=== PATIENT | female | born 1955 | race Caucasian/White ===

== ENCOUNTER 2016-05-05 15:56 | Observation (INO) | payer BC ==
[2016-05-05] MEDS ORDERED: 0.9 % SODIUM CHLORIDE 1000ML 1,000 ML IV PRN (16:33)
[2016-05-05] MEDS ORDERED: NITROGLYCERIN 0.4MG SL TABLET #25 BTL SL PRN ×2 (16:33→19:59)
[2016-05-05] MEDS ORDERED: ASPIRIN 81 MG CHEWABLE TABLET PO ONE (16:33)
[2016-05-05 16:54] LABS: EOS % 6.4 % (0-6); GRAN % 51.9 % (47-80); HEMATOCRIT 42.9 % (35.0-47.0); HEMOGLOBIN 13.8 gm/dl (11.6-16.0); LYMPH % 33.7 % (16-45); MEAN CELL VOLUME 97.7 fl (81-97); MEAN CORPUSCULAR HEMOGLOBIN 31.4 pg (27-33); MEAN CORPUSCULAR HGB CONC 32.2 g/dl (32-36); MEAN PLATELET VOLUME 10.2 fl (7.4-10.4); PLATELET COUNT 302 K/uL (130-400); RED BLOOD COUNT 4.39 M/uL (3.80-5.40); RED CELL DISTRIBUTION WIDTH 13.8 % (11.5-14.5); WHITE BLOOD COUNT W/O DIFF 6.7 K/uL (4.2-12.2)
[2016-05-05 17:05] LABS: ANION GAP 13.2 (7-16); BLOOD UREA NITROGEN 15 mg/dL (7-17); CARBON DIOXIDE 27.8 mmol/L (22-30); CREATINE PHOSPHOKINASE 29 U/L (30-135); CREATININE 0.7 mg/dL (0.52-1.04); EST GLOMERULAR FILTRATION RATE > 60 ml/min; GLUCOSE,RANDOM 92 mg/dL (70-110)
[2016-05-05 17:13] LABS: D-DIMER 0.93 mg/L FEU (0-0.59); PARTIAL THROMBOPLASTIN TIME 26.2 SECONDS (24.5-39.1)
[2016-05-05 17:30] LABS: CKMB < 0.2 ug/L (0-6); TROPONIN I < 0.012 ng/mL (0.00-0.034)
--- NOTE | 2016-05-05 19:33 | Emergency Department Record ---
History of Present Illness - General Chief Complaint: Chest Pain Stated Complaint: NECK PAIN,LEFT ARM & CHEST PAIN Time Seen by Provider: 05/05/16 16:16 Source: Patient Mode of Arrival: Wheelchair Limitations: No limitations - History of Present Illness Initial Comments: pt developed chest pain/neck pain and l shoulder pain unlike anything she has ever had before. MD Complaint: Chest pain Onset/Timin -: Days(s) Onset: During rest Pain Location: Other Pain Radiation: Other Severity: Moderate Severity scale (1-10): 7 Quality: Aching Consistency: Constant Improves With: Medication-other Worsens With: Nothing Anginal Symptoms: Nausea Treatments Prior to Arrival: Aspirin - Related Data Home Medications Medication Instructions Recorded Confirmed Last Taken Hydrochlorothiazide 1 tab PO DAILY 09/24/13 07/15/14 05/05/16 [Hydrochlorothiazide] Aspirin/Acetaminophen/Caffeine 1 each PO BID 07/15/14 07/15/14 05/05/16 [Excedrin Migraine Caplet] Levothyroxine Sodium 50 mcg PO DAILY 05/05/16 05/05/16 05/05/16 Allergies Allergy/AdvReac Type Severity Reaction Status Date / Time Cephalosporins Allergy ALTERED Verified 05/05/16 16:14 MENTAL STATUS Travel Screening - Travel/Exposure Within Last 30 Days Have you traveled within the last 30 days?: No - Travel/Exposure Within Last Year Have you traveled outside the [place] in the last year?: No - Additonal Travel Details Have you been exposed to anyone with a communicable illness?: No - Travel Symptoms Symptom Screening: None Review of Systems Reviewed: No additional complaints except as noted below Constitutional: Reports: As per HPI. Denies: Chills, Fever, Malaise, Night sweats, Weakness, Weight change Eyes: Reports: As per HPI. Denies: Eye discharge, Eye pain, Photophobia, Vision change ENT: Reports: As per HPI. Denies: Congestion, Dental pain, Ear pain, Epistaxis , Hearing loss, Throat pain Respiratory: Reports: As per HPI. Denies: Cough, Dyspnea, Hemoptysis, Stridor, Wheezes Cardiovascular: Reports: As per HPI. Denies: Arrhythmia, Chest pain, Dyspnea on exertion, Edema, Murmurs, Orthopnea, Palpitations, Paroxysmal nocturnal dyspnea, Rheumatic Fever, Syncope Endocrine: Reports: As per HPI. Denies: Fatigue, Heat or cold intolerance, Polydipsia, Polyuria Gastrointestinal: Reports: As per HPI. Denies: Abdominal pain, Constipation, Diarrhea, Hematemesis, Hematochezia, Melena, Nausea, Vomiting Genitourinary: Reports: As per HPI. Denies: Abnormal menses, Discharge, Dyspareunia, Dysuria, Frequency, Hematuria, Incontinence, Retention, Urgency Musculoskeletal: Reports: As per HPI. Denies: Arthralgia, Back pain, Gout, Joint swelling, Myalgia, Neck pain Skin: Reports: As per HPI. Denies: Bruising, Change in color, Change in hair/ nails, Lesions, Pruritus, Rash Neurological: Reports: As per HPI. Denies: Abnormal gait, Confusion, Headache, Numbness, Paresthesias, Seizure, Tingling, Tremors, Vertigo, Weakness Psychiatric: Reports: As per HPI. Denies: Anxiety, Auditory hallucinations, Depression, Homicidal thoughts, Suicidal thoughts, Visual hallucinations Hematological/Lymphatic: Reports: As per HPI. Denies: Anemia, Blood Clots, Easy bleeding, Easy bruising, Swollen glands Past Medical History - SOCIAL HISTORY Smoking Status: Never smoker Alcohol Use: None Drug Use: None - RESPIRATORY Hx Respiratory Disorders: No - CARDIOVASCULAR Hx Cardio Disorders: No - NEURO Hx Neuro Disorders: Yes Hx CVA: Yes (right side July 2012) Hx Headaches: Yes - GI Hx GI Disorders: No Hx Nausea/Vomiting: Yes Comment:: frequent idigestion, constipation - Hx Genitourinary Disorders: No - ENDOCRINE Hx Endocrine Disorders: Yes Hx Thyroid Disease: Yes (partial thyroidectomy) - MUSCULOSKELETAL Hx Musculoskeletal Disorders: No - PSYCH Hx Psych Problems: Yes Hx Depression: Yes - HEMATOLOGY/ONCOLOGY Hx Hematology/Oncology Disorders: Yes Hx Cancer: Yes Hx Chemotherapy: No Hx Radiation Therapy: Yes Family Medical History Any Significant Family History?: No Hx Heart Disease: Mother Physical Exam - General General Appearance: Alert, Oriented x3, Cooperative, Mild distress - Head Head exam: Normal inspection - Eye Eye exam: Normal appearance, PERRL, EOMI Pupils: Normal accommodation - ENT ENT exam: Normal exam, Mucous membranes moist, Normal external ear exam, Normal orophraynx Ear exam: Normal external inspection. negative: External canal tenderness Nasal Exam: Normal inspection. negative: Discharge, Sinus tenderness Mouth exam: Normal external inspection, Tongue normal Teeth exam: Normal inspection. negative: Dental caries Throat exam: Normal inspection. negative: Tonsillar erythema, Tonsillar exudate - Neck Neck exam: Normal inspection, Full ROM. negative: Tenderness - Respiratory Respiratory exam: Normal lung sounds bilaterally. negative: Respiratory distress - Cardiovascular Cardiovascular Exam: Regular rate, Normal rhythm, Normal heart sounds - GI/Abdominal GI/Abdominal exam: Soft, Normal bowel sounds. negative: Tenderness - Rectal Rectal exam: Deferred - exam: Deferred - Extremities Extremities exam: Normal inspection, Full ROM, Normal capillary refill. negative: Tenderness - Back Back exam: Reports: Normal inspection, Full ROM. Denies: Muscle spasm, Rash noted, Tenderness - Neurological Neurological exam: Alert, Normal gait, Oriented X3 - Psychiatric Psychiatric exam: Normal affect, Normal mood - Skin Skin exam: Dry, Intact, Normal color, Warm Course Vital Signs 05/05/16 16:18 Temperature 98 F Pulse Rate 74 Respiratory 18 Rate Blood Pressure 118/56 Pulse Ox 98 - Reevaluation(s) Reevaluation #1: 05/05/16 19:32 pts symptoms were relieved by ntg. ct neg for pe Medical Decision Making - Lab Data Result diagrams: 05/05/16 16:48 05/05/16 16:48 Lab Results 05/05/16 05/05/16 05/05/16 Range/Units 16:48 16:48 16:48 WBC 6.7 (4.2-12.2) K/uL RBC 4.39 (3.80-5.40) M/uL Hgb 13.8 (11.6-16.0) gm/dl Hct 42.9 (35.0-47.0) % MCV 97.7 H (81-97) fl MCH 31.4 (27-33) pg MCHC 32.2 (32-36) g/dl RDW 13.8 (11.5-14.5) % Plt Count 302 (130-400) K/uL MPV 10.2 (7.4-10.4) fl Gran % 51.9 (47-80) % Lymphocytes % 33.7 (16-45) % Monocytes % 7.0 (0-9) % Eosinophils % 6.4 H (0-6) % Basophils % 1.0 (0-6) % PTT 26.20 (24.5-39.1) SECONDS D-Dimer 0.93 H (0-0.59) mg/L FEU Sodium 145 (136-145) mmol/L Potassium 3.7 (3.5-5.1) mmol/L Chloride 104 (98-107) mmol/L Carbon Dioxide 27.8 (22-30) mmol/L Anion Gap 13.2 (7-16) BUN 15 (7-17) mg/dL Creatinine 0.7 (0.52-1.04) mg/dL Estimated GFR > 60 ml/min Random Glucose 92 (70-110) mg/dL Calcium 9.7 (8.5-10.1) mg/dL Creatine Kinase 29 L (30-135) U/L CK-MB (CK-2) < 0.2 (0-6) ug/L Troponin I < 0.012 (0.00-0.034) ng/mL NT-Pro-B Natriuret Pep 70.00 (<125) pg/mL Disposition Disposition: Admit Clinical Impression: Chest pain Qualifiers: Chest pain type: unspecified Qualified Code(s): R07.9 - Chest pain, unspecified Disposition: Still a Patient at [facility] Decision to Admit: Admit from ER Decision to Admit Date: 05/05/16 Decision to Admit Time: 19:34 Forms: Patient Portal Access
[2016-05-05] MEDS ORDERED: ACETAMINOPHEN 500 MG TABLET PO PRN (19:59)
[2016-05-05] MEDS ORDERED: TEMAZEPAM 15 MG CAPSULE PO PRN (19:59)
[2016-05-06 00:43] LABS: CKMB < 0.2 ug/L (0-6)
[2016-05-06 01:12] LABS: TROPONIN I < 0.012 ng/mL (0.00-0.034)
[2016-05-06] MEDS ORDERED: LEVOTHYROXINE SODIUM 50 MCG TABLET PO SCH ×2 (07:00→10:00)
[2016-05-06 08:34] LABS: CHOLESTEROL 165 mg/dL (0-200); HDL CHOLESTEROL 44 mg/dL (40-60); TRIGLYCERIDES 86 mg/dL (30-200); VLDL CHOLESTEROL 17 mg/dL (10.00-40.00)
[2016-05-06 08:46] LABS: LDL CHOLESTEROL/MEASURED 89.9 mg/dL (0-100)
[2016-05-06 08:47] LABS: CKMB < 0.2 ug/L (0-6); TROPONIN I < 0.012 ng/mL (0.00-0.034)
[2016-05-06] MEDS ORDERED: HYDROCHLOROTHIAZIDE 25 MG TABLET PO SCH (10:00)
[2016-05-06] MEDS ORDERED: ASPIRIN 325 MG TAB ENTERIC-COATED PO SCH (10:00)
--- NOTE | 2016-05-06 10:45 | History & Physical ---
History of Present Illness - Date of Service Date of Service for History & Physical: 05/06/16 - History of Present Illness Admitting Diagnosis: chest pain History of Present Illness: 60 yo female admitted with CC of CP. PMHx of costochondritis, stress, L breast cancer (dx in 2010 s/p RXT/chemo, lumpectomy and breast augmentation), hypothyroidism, migraines and melanoma. CP started 3-4 days ago. Pain began in neck and radiated to left shoulder and down left arm. Described as heavy/achy. Rated 8/10 in severity at it's worst. aggravated by stress and indigestion. Alleviated by ntg in the ER. Associated symptoms included stress, constipation, indigestion, fatigue and lightheadedness. upon presentation, VS stable. CBC/CMP normal, d-dimer 0.93, CE negative x 1, BNP 70, CTA: negative. EKG: sinus rhythm, borderline prolonged NM int. LDL: 89.9, TG 86, chol 165, HDL 44. Patient's chest/neck/shoulder pain improved with 0.4 mg of NTG. Patient was placed on telemetry. Two more CE's ordered. Patient admitted for further medical management. This morning, patient is lying comfortably in bed. She denies any chest/ shoulder/neck or arm pain. She's not received any NTG or pain medication since arriving to the floor. she's had two additional CE's ordered which are negative. She tolerated breakfast. No bowel movements. ambulating to the restroom. No personal hx of cardiac disease. Reports mother has h/o triple bypass. she admits to a significant amount of stress at home. She also c/o on and off constipation, which lead to abdominal bloating. No N/V, diarrhea, abd pain, change in urination, dysuria, fever, chills, headache, change in vision. Last colonoscopy was normal per patient and she's due in 2020 for screening. Patient has had previous ED visits for chest pain and diagnosed with costchondritis. she has no mft. no smoking history. no hospitalization within the past year. no recent travel or change in medications. No SOB, [place], cough, acid reflux. PCP: Dr. Sher Travel Screening - Travel/Exposure Within Last 30 Days Have you traveled within the last 30 days?: No - Travel/Exposure Within Last Year Have you traveled outside the [place] in the last year?: No - Additonal Travel Details Have you been exposed to anyone with a communicable illness?: No - Travel Symptoms Symptom Screening: None Review of Systems Constitutional: Reports: As per HPI. Denies: Chills, Fever, Malaise, Night sweats, Weakness, Weight change Eyes: Reports: As per HPI. Denies: Eye discharge, Eye pain, Photophobia, Vision change ENT: Reports: As per HPI. Denies: Congestion, Dental pain, Ear pain, Epistaxis , Hearing loss, Throat pain Respiratory: Reports: As per HPI. Denies: Cough, Dyspnea, Hemoptysis, Stridor, Wheezes Cardiovascular: Reports: As per HPI. Denies: Arrhythmia, Chest pain, Dyspnea on exertion, Edema, Murmurs, Orthopnea, Palpitations, Paroxysmal nocturnal dyspnea, Rheumatic Fever, Syncope Endocrine: Reports: As per HPI. Denies: Fatigue, Heat or cold intolerance, Polydipsia, Polyuria Gastrointestinal: Reports: As per HPI. Denies: Abdominal pain, Constipation, Diarrhea, Hematemesis, Hematochezia, Melena, Nausea, Vomiting Genitourinary: Reports: As per HPI. Denies: Abnormal menses, Discharge, Dyspareunia, Dysuria, Frequency, Hematuria, Incontinence, Retention, Urgency Musculoskeletal: Reports: As per HPI. Denies: Arthralgia, Back pain, Gout, Joint swelling, Myalgia, Neck pain Skin: Reports: As per HPI. Denies: Bruising, Change in color, Change in hair/ nails, Lesions, Pruritus, Rash Neurological: Reports: As per HPI. Denies: Abnormal gait, Confusion, Headache, Numbness, Paresthesias, Seizure, Tingling, Tremors, Vertigo, Weakness Psychiatric: Reports: As per HPI. Denies: Anxiety, Auditory hallucinations, Depression, Homicidal thoughts, Suicidal thoughts, Visual hallucinations Hematological/Lymphatic: Reports: As per HPI. Denies: Anemia, Blood Clots, Easy bleeding, Easy bruising, Swollen glands Past Medical History - SOCIAL HISTORY Smoking Status: Never smoker Alcohol Use: None Drug Use: None - RESPIRATORY Hx Respiratory Disorders: No - CARDIOVASCULAR Hx Cardio Disorders: No - NEURO Hx Neuro Disorders: Yes Hx CVA: Yes (right side July 2012) Hx Headaches: Yes - GI Hx GI Disorders: Yes Hx Nausea/Vomiting: Yes Comment:: frequent idigestion, constipation - Hx Genitourinary Disorders: No - ENDOCRINE Hx Endocrine Disorders: Yes Hx Thyroid Disease: Yes (partial thyroidectomy) - MUSCULOSKELETAL Hx Musculoskeletal Disorders: No - PSYCH Hx Psych Problems: Yes Hx Depression: Yes - HEMATOLOGY/ONCOLOGY Hx Hematology/Oncology Disorders: Yes Hx Cancer: Yes Hx Chemotherapy: No Hx Radiation Therapy: Yes Family Medical History Any Significant Family History?: Yes Family Hx Comment (NOT TO BE USED IN PLACE OF ITEMS BELOW): Daughter has SLE Hx Cancer: Children Hx Diabetes: Grandparents Hx Heart Disease: Mother H&P Meds/Allergies - Allergies Allergies: Allergies Allergy/AdvReac Type Severity Reaction Status Date / Time banana Allergy SWELLING Verified 05/05/16 20:31 OF THE TONGUE broccoli Allergy SWELLING Verified 05/05/16 20:31 (GENERAL) Cephalosporins Allergy ALTERED Verified 05/05/16 16:14 MENTAL STATUS Latex, Natural Rubber Allergy SWELLING Verified 05/05/16 20:31 (GENERAL) - Home Medications Home Medications Medication Instructions Recorded Confirmed Last Taken Hydrochlorothiazide 1 tab PO DAILY 09/24/13 05/05/16 05/03/16 [Hydrochlorothiazide] Aspirin/Acetaminophen/Caffeine 1 each PO BID 07/15/14 05/05/16 05/05/16 [Excedrin Migraine Caplet] Levothyroxine Sodium 50 mcg PO DAILY 05/05/16 05/05/16 05/05/16 - Active Medications Active Medications: Current Medications Acetaminophen (Tylenol 500mg Tab) 1,000 mg PO Q6H PRN PRN Reason: PAIN/TEMP Aspirin (Ecotrin (Ec)) 325 mg PO DAILY [facility] Last Admin: 05/06/16 10:26 Dose: Not Given Hydrochlorothiazide (Hctz 25mg) 25 mg PO DAILY [facility] Last Admin: 05/06/16 10:26 Dose: Not Given Levothyroxine Sodium (Synthroid) 50 mcg PO DAILYTHY [facility] Last Admin: 05/06/16 06:30 Dose: 50 mcg Nitroglycerin (Nitrostat 0.4mg) 0.4 mg SL Q5MIN PRN PRN Reason: CHEST PAIN Stop: 05/07/16 20:00 Temazepam (Restoril) 15 mg PO QHS PRN PRN Reason: INSOMNIA Last Admin: 05/05/16 23:35 Dose: 15 mg Physical Exam - Vital Signs Vital Signs: Vital Signs - Last 24 Hrs Temp Pulse Pulse Pulse Resp BP Pulse Ox 05/06/16 08:00 60 63 15 05/06/16 07:56 98.3 F 63 15 96/57 94 L 05/06/16 04:55 97.6 F 66 16 100/56 95 05/05/16 22:23 63 95 05/05/16 21:20 98.9 F 61 21 105/57 98 05/05/16 21:00 62 18 05/05/16 19:59 98.9 F 72 18 108/68 98 - General General Appearance: Alert, Oriented x3, Cooperative, No acute distress Limitations: No limitations - Head Head exam: Normal inspection - Eye Eye exam: Normal appearance, PERRL, EOMI Pupils: Normal accommodation - ENT ENT exam: Normal exam, Mucous membranes moist, Normal external ear exam, Normal orophraynx Ear exam: Normal external inspection. negative: External canal tenderness Nasal Exam: Normal inspection. negative: Discharge, Sinus tenderness Mouth exam: Normal external inspection, Tongue normal Teeth exam: Normal inspection. negative: Dental caries Throat exam: Normal inspection. negative: Tonsillar erythema, Tonsillar exudate - Neck Neck exam: Normal inspection, Full ROM. negative: Tenderness - Respiratory Respiratory exam: Normal lung sounds bilaterally. negative: Respiratory distress - Cardiovascular Cardiovascular Exam: Regular rate, Normal rhythm, Normal heart sounds - GI/Abdominal GI/Abdominal exam: Soft, Normal bowel sounds. negative: Tenderness - Rectal Rectal exam: Deferred - exam: Deferred - Extremities Extremities exam: Normal inspection, Full ROM, Normal capillary refill. negative: Tenderness - Back Back exam: Reports: Normal inspection, Full ROM. Denies: Muscle spasm, Rash noted, Tenderness - Neurological Neurological exam: Alert, Normal gait, Oriented X3 - Psychiatric Psychiatric exam: Normal affect, Normal mood - Skin Skin exam: Dry, Intact, Normal color, Warm Results - Labs Result Diagrams: 05/05/16 16:48 05/05/16 16:48 Labs Last 24 Hours: Laboratory Results - last 24 hr 05/06/16 08:14 CK-MB (CK-2) < 0.2 Troponin I < 0.012 Triglycerides 86 Cholesterol 165 LDL Cholesterol [place] 89.9 VLDL Cholesterol 17 HDL Cholesterol 44 VTE H&P Assessment - Risk for VTE Risk for VTE: Yes Risk Level: Low Risk Assessment Date: 05/06/16 Risk Assessment Time: 10:00 VTE Orders Placed or Will Be Placed: No VTE Reason for No Prophylaxis: Not Indicated (ambulating her room) Plan - Detailed Diagnosis and Plan (1) Chest pain Current Visit: Yes Status: Acute Qualifiers: Chest pain type: unspecified Qualified Code(s): R07.9 - Chest pain, unspecified Base Code: R07.9 - CHEST PAIN, UNSPECIFIED Comment: 05/06/16: costochondritis vs. GI vs. psychosomatic vs. other? I do not suspect cardiac as CE neg x 3, EKG NSR, RBBB, borderline prolonged NM int. No CP/neck/shoulder or arm pain. CTA negative for PE/aneurysm. ASCVD 10 year risk % <7.5. Will continue telemetry. monitor VS's Q4 hours. Continue home medications and [address] Dong consulted to see patient. Noting patient's cardiac w/up is unremarkable at this time, I discuss having him see patient on an outpatient basis. (2) Full code status Current Visit: Yes Status: Acute Base Code: Z78.9 - OTHER SPECIFIED HEALTH STATUS Comment: 05/06/16: full code. (3) DVT prophylaxis Current Visit: Yes Status: Acute Base Code: [id number] - Comment: 05/06/16: low risk. patient ambulating the room.
--- NOTE | 2016-05-06 11:07 | Discharge Summary ---
Providers Discharge Summary Date: 05/06/16 Date of admission: 05/05/16 19:57 Expected Date of Discharge: 05/06/16 Attending physician: HARLEY GERMAN Primary care physician: EDNA SHER D.O. Consults: Consult Orders 05/05/16 21:00 Consult - Cardiology NOW Consulting Provider: ZHANG DONG Physician Instructions: Reason For Exam: chest pain Does pt have current massage therapist?: Not Established Physical Exam - Vital Signs Vital Signs: Vital Signs - Last 24 Hrs Temp Pulse Pulse Pulse Resp BP Pulse Ox 05/06/16 08:00 60 63 15 05/06/16 07:56 98.3 F 63 15 96/57 94 L 05/06/16 04:55 97.6 F 66 16 100/56 95 05/05/16 22:23 63 95 05/05/16 21:20 98.9 F 61 21 105/57 98 05/05/16 21:00 62 18 05/05/16 19:59 98.9 F 72 18 108/68 98 - General General Appearance: Alert, Oriented x3, Cooperative, No acute distress Limitations: No limitations - Head Head exam: Normal inspection - Eye Eye exam: Normal appearance, PERRL, EOMI Pupils: Normal accommodation - ENT ENT exam: Normal exam, Mucous membranes moist, Normal external ear exam, Normal orophraynx Ear exam: Normal external inspection. negative: External canal tenderness Nasal Exam: Normal inspection. negative: Discharge, Sinus tenderness Mouth exam: Normal external inspection, Tongue normal Teeth exam: Normal inspection. negative: Dental caries Throat exam: Normal inspection. negative: Tonsillar erythema, Tonsillar exudate - Neck Neck exam: Normal inspection, Full ROM. negative: Tenderness - Respiratory Respiratory exam: Normal lung sounds bilaterally. negative: Respiratory distress - Cardiovascular Cardiovascular Exam: Regular rate, Normal rhythm, Normal heart sounds - GI/Abdominal GI/Abdominal exam: Soft, Normal bowel sounds. negative: Tenderness - Rectal Rectal exam: Deferred - exam: Deferred - Extremities Extremities exam: Normal inspection, Full ROM, Normal capillary refill. negative: Tenderness - Back Back exam: Reports: Normal inspection, Full ROM. Denies: Muscle spasm, Rash noted, Tenderness - Neurological Neurological exam: Alert, Normal gait, Oriented X3 - Psychiatric Psychiatric exam: Normal affect, Normal mood - Skin Skin exam: Dry, Intact, Normal color, Warm Hospitalization - Hospitalization Admission Diagnosis: chest pain - Problem List/Discharge Diagnosis (1) Chest pain Current Visit: Yes Status: Acute Discharge Diagnosis: Chest pain type: unspecified Qualified Code(s): R07.9 - Chest pain, unspecified Base Code: R07.9 - CHEST PAIN, UNSPECIFIED Comment: 05/06/16: costochondritis vs. GI vs. psychosomatic vs. other? Cardiac w/up unremarkable at this time. CE neg x 3, EKG NSR, RBBB, borderline prolonged AL int. No CP/neck/shoulder or arm pain. CTA negative for PE/aneurysm. ASCVD 10 year risk % <7.5. Will send her home with Zantac 150 mg 1-2 x daily as needed for acid reflux. She will take OTC ibuprofen for any muscle pain. She denies any CP, neck/shoulder/arm pain, LOC, SOB, [place], lightheadedness or dizziness. She has an appt with Dr. Dong 05/13/16 @ 1500. F/up with Dr. Sher 05/11/16 @ 1030. Patient agree's to retrun regarding any new or worsening symptoms. (2) Full code status Current Visit: Yes Status: Acute Base Code: Z78.9 - OTHER SPECIFIED HEALTH STATUS Comment: 05/06/16: patient remained full code. - Hospitalization Course Disposition: Home, Self-Care Hospital Course: 60 yo female admitted with CC of CP. PMHx of costochondritis, stress, breast cancer (dx in 2010 s/p RXT/chemo, lumpectomy and breast augmentation), hypothyroidism, migraines and melanoma. CP started 3-4 days ago. Pain began in neck and radiated to left shoulder and down left arm. Described as heavy/achy. Rated 8/10 in severity at it's worst. aggravated by stress and indigestion. Alleviated by ntg in the ER. Associated symptoms included stress, constipation, indigestion, fatigue and lightheadedness. upon presentation, VS stable. CBC/CMP normal, d-dimer 0.93, CE negative x 1, BNP 70, CTA: negative. EKG: sinus rhythm, borderline prolonged AL int. LDL: 89.9, TG 86, chol 165, HDL 44. Patient's chest/neck/shoulder pain improved with 0.4 mg of NTG. Patient was placed on telemetry. Two more CE's ordered. Patient admitted for further medical management. This morning, patient is lying comfortably in bed. She denies any chest/ shoulder/neck or arm pain. She's not received any NTG or pain medication since arriving to the floor. she's had two additional CE's ordered which are negative. She tolerated breakfast. No bowel movements. ambulating to the restroom. No personal hx of cardiac disease. Reports mother has h/o triple bypass. she admits to a significant amount of stress at home. She also c/o on and off constipation, which lead to abdominal bloating. No N/V, diarrhea, abd pain, change in urination, dysuria, fever, chills, headache, change in vision. Last colonoscopy was normal per patient and she's due in 2020 for screening. Patient has had previous ED visits for chest pain and diagnosed with costchondritis. she has no massage therapist. no smoking history. no hospitalization within the past year. no recent travel or change in medications. No SOB, [place], cough, acid reflux. PCP: Dr. Sher I spoke with Dr. Dong who would like to see patient as an outpatient. Condition at Discharge: (1) Good Discharge Medications - Discharge Medications Prescriptions: Ranitidine HCl [Zantac] 150 mg PO BID PRN #60 tablet PRN Reason: Heartburn Home Medications: Ambulatory Orders Hydrochlorothiazide 1 tab PO DAILY 09/24/13 [Last Taken 05/03/16] Aspirin/Acetaminophen/Caffeine [Excedrin Migraine Caplet] 1 each PO BID [Last Taken 05/05/16] Levothyroxine Sodium 50 mcg PO DAILY 05/05/16 [Last Taken 05/05/16] Ranitidine HCl [Zantac] 150 mg PO BID PRN #60 tablet 05/06/16 [Last Taken Unknown] Discharge Plan - Discharge Instructions Activity at Discharge: Increase Activity as Tolerated Diet at Discharge: Regular Diet Instructions: Ranitidine (By mouth), Chest Pain (DC)
--- NOTE | 2016-05-08 11:00 | CT ANGIOGRAM REPORT ---
EXAM: CT ANGIOGRAM OF THE CHEST WITH POST PROCESSING HISTORY: NECK PAIN, LEFT ARM PAIN, AND CHEST PAIN FOR THE PAST COUPLE OF DAYS. ELEVATED D-DIMER. TECHNIQUE: Standard CT angiography of the chest was performed with post processing following the bolus administration of 100 ml of Omnipaque 350. Additional multiplanar maximum intensity projection reformatted images were performed on an independent workstation under concurrent supervision. Comparison: 09/24/13. FINDINGS: The contrast bolus is slightly suboptimal, but adequate for interpretation. There is no pulmonary embolus. There is no aortic aneurysm or dissection. The heart is normal in size. There is no pericardial effusion. There is no mediastinal or hilar lymphadenopathy. There is mild dependent atelectasis within both lungs. The lungs are otherwise clear. There are no acute infiltrates or effusions. There is no pneumothorax. Bilateral breast implants are in place and appear intact. The chest wall and axillary regions are otherwise normal. There are no acute osseous abnormalities. The gallbladder is surgically absent. The upper abdomen is otherwise unremarkable. IMPRESSION: NO EVIDENCE FOR PULMONARY EMBOLUS OR OTHER ACUTE CARDIOPULMONARY PROCESS. JOB NUMBER: [id number] [facility]
== END 2016-05-06 13:52 | disposition home or self-care (01) ==
LOC: ER 15:56 → MEDSURG 19:57
PROVIDERS: ADMIT Family Medicine; ATTEND Family Medicine
DX: R07.9 Chest pain, unspecified (principal); E03.9 Hypothyroidism, unspecified; Z78.9 Other specified health status; Z85.3 Personal history of malignant neoplasm of breast; Z86.73 Personal history of transient ischemic attack (TIA), and cerebral infarction without residual deficits
CPT/HCPCS: 99285 ×2; 82550; 85025; 85730; 83874; 82553 ×2; 84484 ×2; 80048; 80061; 85379; 83880; 71275; 94760 ×2; 93005 ×2; 93010; G0378 ×2; Q9967; 99220

== ENCOUNTER 2016-07-20 20:08 | Emergency (ER) | payer BC ==
--- NOTE | 2016-07-20 20:52 | Emergency Department Record ---
History of Present Illness - General Chief Complaint: Headache Migraine Stated Complaint: ESPINOSA Time Seen by Provider: 07/20/16 20:44 Source: Patient Mode of Arrival: Ambulatory Limitations: No limitations - History of Present Illness Initial Comments: 60 yo female presents with about 4 days of gradual onset front headache with sinus congestion that radiates back. She does have a history of frequent headaches and migraines. She denies and fever. She has had a recent URI type syndrome with sinus drainage, pressure, and mild non productive cough. She took her typical migraine home medications without relief. No vomiting. No vision changes. No weakness or coordination changes. MD Complaint: Headache, "Migraine" Onset/Timin -: Hour(s) Onset Description: Sudden Location: Diffuse, Occipital Severity: Severe Severity scale (1-10): 10 Quality: Aching, Full, Sharp, Throbbing, Worst headache of life Consistency: Constant Improves With: Nothing Worsens With: None Context: Occured at rest, Recent URI Associated Symptoms: Neck stiffness Treatments Prior to Arrival: None - Related Data Home Medications Medication Instructions Recorded Confirmed Last Taken Levothyroxine Sodium 50 mcg PO DAILY 05/05/16 07/20/16 07/20/16 Allergies Allergy/AdvReac Type Severity Reaction Status Date / Time banana Allergy SWELLING Verified 05/05/16 20:31 OF THE TONGUE broccoli Allergy SWELLING Verified 05/05/16 20:31 (GENERAL) Cephalosporins Allergy ALTERED Verified 05/05/16 16:14 MENTAL STATUS Latex, Natural Rubber Allergy SWELLING Verified 05/05/16 20:31 (GENERAL) Travel Screening - Travel/Exposure Within Last 30 Days Have you traveled within the last 30 days?: No - Travel/Exposure Within Last Year Have you traveled outside the [place] in the last year?: No - Additonal Travel Details Have you been exposed to anyone with a communicable illness?: No - Travel Symptoms Symptom Screening: Headache Review of Systems Constitutional: Denies: Chills, Fever, Malaise, Night sweats, Weakness Eyes: Reports: Photophobia. Denies: Eye discharge, Eye pain, Vision change ENT: Reports: Congestion. Denies: Ear pain, Epistaxis, Throat pain Respiratory: Reports: Cough. Denies: Dyspnea, Hemoptysis, Stridor, Wheezes Cardiovascular: Denies: Chest pain, Palpitations, Syncope Endocrine: Denies: Fatigue, Polydipsia, Polyuria Gastrointestinal: Reports: Nausea. Denies: Abdominal pain, Diarrhea, Vomiting Genitourinary: Denies: Dysuria, Frequency, Urgency Musculoskeletal: Denies: Arthralgia, Back pain, Joint swelling, Myalgia Skin: Denies: Bruising, Change in color Neurological: Reports: As per HPI, Headache. Denies: Abnormal gait, Confusion, Numbness, Paresthesias, Seizure, Tingling, Tremors, Vertigo, Weakness Psychiatric: Denies: Anxiety, Depression Hematological/Lymphatic: Denies: Blood Clots, Easy bleeding, Easy bruising, Swollen glands Past Medical History - SOCIAL HISTORY Smoking Status: Never smoker Alcohol Use: None Drug Use: None - RESPIRATORY Hx Respiratory Disorders: No - CARDIOVASCULAR Hx Cardio Disorders: No - NEURO Hx Neuro Disorders: Yes Hx CVA: Yes (right side July 2012) Hx Headaches: Yes - GI Hx GI Disorders: Yes Hx Nausea/Vomiting: Yes Comment:: frequent idigestion, constipation - Hx Genitourinary Disorders: No - ENDOCRINE Hx Endocrine Disorders: Yes Hx Thyroid Disease: Yes (partial thyroidectomy) - MUSCULOSKELETAL Hx Musculoskeletal Disorders: No - PSYCH Hx Psych Problems: Yes Hx Depression: Yes - HEMATOLOGY/ONCOLOGY Hx Hematology/Oncology Disorders: Yes Hx Cancer: Yes Hx Chemotherapy: No Hx Radiation Therapy: Yes Family Medical History Any Significant Family History?: Yes Family Hx Comment (NOT TO BE USED IN PLACE OF ITEMS BELOW): Daughter has SLE Hx Cancer: Children Hx Diabetes: Grandparents Hx Heart Disease: Mother Physical Exam - General General Appearance: Alert, Oriented x3, Cooperative, No acute distress Limitations: No limitations - Head Head exam: Normal inspection. negative: Atraumatic, Normocephalic Head exam detail: negative: Abrasion, Contusion, Hematoma, Laceration - Eye Eye exam: Normal appearance, PERRL, EOMI. negative: Conjunctival injection, Nystagmus, Periorbital swelling, Periorbital tenderness, Scleral icterus - ENT ENT exam: Normal exam, Mucous membranes moist, Normal external ear exam, Normal orophraynx, TM's normal bilaterally Ear exam: Normal external inspection. negative: External canal tenderness Nasal Exam: Discharge, Sinus tenderness (frontal). negative: Normal inspection , Active bleeding, Dried blood Mouth exam: Normal external inspection, Tongue normal Teeth exam: Normal inspection. negative: Dental caries Throat exam: Normal inspection. negative: Tonsillar erythema, Tonsillomegaly, Tonsillar exudate, R peritonsillar mass, L peritonsillar mass - Neck Neck exam: Normal inspection, Full ROM. negative: Lymphadenopathy, Meningismus , Tenderness, Thyromegaly - Respiratory Respiratory exam: Normal lung sounds bilaterally. negative: Respiratory distress - Cardiovascular Cardiovascular Exam: Regular rate, Normal rhythm, Normal heart sounds - GI/Abdominal GI/Abdominal exam: Soft, Normal bowel sounds. negative: Tenderness - Rectal Rectal exam: Deferred - exam: Deferred - Extremities Extremities exam: Normal inspection, Full ROM, Normal capillary refill. negative: Pedal edema, Tenderness - Back Back exam: Reports: Normal inspection, Full ROM. Denies: CVA tenderness (R), CVA tenderness (L), Muscle spasm, Paraspinal tenderness, Rash noted, Tenderness , Vertebral tenderness - Neurological Neurological exam: Alert, CN II-XII intact, Normal gait, Oriented X3, Reflexes normal. negative: Abnormal gait, Altered, Motor sensory deficit - Psychiatric Psychiatric exam: Normal affect, Normal mood. negative: Agitated, Anxious - Skin Skin exam: Dry, Intact, Normal color, Warm Course Vital Signs 07/20/16 20:24 Temperature 97.7 F Pulse Rate [ 83 Pulse Ox Probe] Respiratory 24 Rate Blood Pressure 129/86 Blood Pressure 129/86 [Right Arm] Pulse Ox 96 - Reevaluation(s) Reevaluation #1: The patient was seen and examined HCT ordered due to duration of headache and age of patient No abrupt onset. No neurochanges on examination. 07/20/16 20:55 Reevaluation #2: The head CT examination is negative for acute process She does have some maxillary and ethmoid sinus mucosa edema. Normal brain. 07/20/16 22:07 Reevaluation #3: The patient was rechecked She reports reports her symptoms have completely resolved We discussed home care, and reasons to return We discussed close follow up with her PCP as well. 07/20/16 22:28 Disposition Disposition: Discharge Clinical Impression: Headache Qualifiers: Headache type: unspecified Headache chronicity pattern: acute headache Intractability: not intractable Qualified Code(s): R51 - Headache Sinusitis Qualifiers: Sinusitis location: unspecified location Chronicity: acute Recurrence: non- recurrent Qualified Code(s): J01.90 - Acute sinusitis, unspecified Disposition: Home, Self-Care Return To Work/School Note Provided: Yes Condition: (1) Good Instructions: Migraine Headache (ED), Acute Headache (ED) Additional Instructions: Call your doctor for close follow up this week Return if you have any return of pain, or any new symptoms of concern Rest and stay well hydrated the next 1-2 days. Forms: Patient Portal Access Time of Disposition: 22:33
[2016-07-20] MEDS ORDERED: 0.9 % SODIUM CHLORIDE 1,000 ML BAG IV ONE (20:54)
[2016-07-20] MEDS ORDERED: METOCLOPRAMIDE HCL 10 MG/2 ML VIAL IVP ONE (21:30)
[2016-07-20] MEDS ORDERED: KETOROLAC 30 MG/ML VIAL IVP ONE (22:06)
[2016-07-20] MEDS ORDERED: DIPHENHYDRAMINE HCL IV 50 MG/ML VIAL IVP ONE (22:06)
== END 2016-07-20 22:45 | disposition home or self-care (01) ==
LOC: ER 20:08
DX: R51 Headache (principal); J01.90 Acute sinusitis, unspecified; R05 Cough; M43.6 Torticollis
CPT/HCPCS: 70450; 96374; 96375; 99284; J1200; J1885; J2765; J7030

== ENCOUNTER 2016-11-05 10:00 | Day surgery (SDC) | payer BC ==
[2016-11-05] MEDS ORDERED: MIDAZOLAM HCL 2MG/2ML VIAL IV ONE (14:00)
[2016-11-05] MEDS ORDERED: FENTANYL PF 100MCG/2ML VIAL IV ONE (14:00)
[2016-11-05] MEDS ORDERED: LIDOCAINE 2% MDV (20MG/ML) 20ML VIAL IV ONE (14:00)
[2016-11-05] MEDS ORDERED: PROPOFOL 10 MG/ML VIAL IV ONE (14:00)
--- NOTE | 2016-11-09 10:34 | Operative Note ---
DATE OF SURGERY: 11/05/2016 OPERATION: 1. ESOPHAGOGASTRODUODENOSCOPY with biopsy. 2. COLONOSCOPY with cold forceps polypectomy. PREOPERATIVE DIAGNOSIS: Generalized abdominal pain. POSTOPERATIVE DIAGNOSES: 1. Cecal polyp. 2. Gastritis. 3. Duodenitis. PREPARATION QUALITY: Good. ESTIMATED BLOOD LOSS: Minimal. SPECIMENS: Gastric and cecal polyp. COMPLICATIONS: None apparent. PROCEDURE: After informed consent was obtained from the patient, she was placed in the left lateral decubitus position in the endoscopy suite, sedated and monitored by the department of anesthesia. A well-lubricated [id number] gastroscope was placed in the posterior oropharynx and under direct visualization passed to the proximal esophagus. The endoscope was advanced through the proximal, mid, and distal esophagus. The GE junction and esophagus were unremarkable. The gastric body demonstrated mild patchy erythema, as did the antrum. The pylorus unremarkable. The duodenal bulb and sweep demonstrated mild patchy erythema in the duodenal sweep. No evidence of celiac was identified. J-turn views of the proximal stomach were unremarkable. The endoscope was straightened and antral biopsies obtained. The endoscope was removed from the patient with no new findings noted. Digital rectal exam revealed no palpable mass. A well-lubricated [id number] colonoscope was inserted into the rectum and advanced to the cecum. Preparation quality was good. In the marti-appendiceal area there was a 3-4 mm polyp removed with a cold forceps. The remainder of the cecum, ileocecal valve, ascending colon, transverse colon, descending colon, sigmoid colon, and rectum were unremarkable. Forward and J-turn views of the rectum and anorectum were unremarkable. The endoscope was straightened, the rectal ampulla deflated, and the endoscope was removed. RECOMMENDATIONS: I would suggest the patient use MiraLax 17 g daily for what I presume to be constipation-induced abdominal pain. If this does not provide her with relief, perhaps she might benefit from something such as Linzess, Amitiza, or Trulance. I will also have her undergo a CT of the abdomen and pelvis for further evaluation of her persistent lower abdominal pain provided she has not had this recently performed. As always, thank you for allowing me to participate in the healthcare of your patients. CC: Grayson BRICEÑO
== END 2016-11-05 12:32 | disposition home or self-care (01) ==
LOC: HOP 10:00
PROVIDERS: ATTEND Internal Medicine Gastroenterology
DX: D12.0 Benign neoplasm of cecum (principal); R10.13 Epigastric pain; E03.9 Hypothyroidism, unspecified; K29.80 Duodenitis without bleeding; K29.70 Gastritis, unspecified, without bleeding
CPT/HCPCS: 45380; 43239; 00810; J3010